=== PATIENT | male | born 1960 | race Caucasian/White ===

== ENCOUNTER 2016-08-08 13:17 | Emergency (ER) | payer OTHER ==
[~2016-08-08] VITALS: Ht 170.2 cm; Wt 76.0 kg
[2016-08-08 13:28] VITALS: Ht 170.2 cm; Wt 76.0 kg
--- NOTE | 2016-08-08 15:41 | ERA ---
ER Documentation Chief Complaint Date/Time DATE: 08/08/16 TIME: 15:40 Chief Complaint Abdominal pain HPI The patient is a 55-year-old male, presenting to the ER because of intermittent left upper quadrant abdominal pain for 5 days, associated with constipation. He had similar symptoms previously, denies fever, chills, neck pain, chest pain , dyspnea, nausea, vomiting, dysuria. He smokes socially, denies drinking or using illicit drug Past medical/surgical history: None ROS All systems reviewed and are negative except as per history of present illness. Medications Home Meds Active Scripts Omeprazole* (Omeprazole*) 20 Mg Capsule.dr, 20 MG PO BID, #20 Prov:COLT MORA MD 08/08/16 Ibuprofen* (Motrin*) 600 Mg Tab, 600 MG PO Q6H Y for PAIN AND OR ELEVATED TEMP, #30 TAB Prov:COLT MORA MD 08/08/16 Allergies Allergies: Coded Allergies: No Known Allergy (Unverified , 08/08/16) PMhx/Soc Medical and Surgical Hx: pt denies Medical Hx, pt denies Surgical Hx Hx Alcohol Use: No Hx Substance Use: No Hx Tobacco Use: Yes Smoking Status: Current some day smoker Physical Exam Vitals Vital Signs Date Time Temp Pulse Resp B/P Pulse Ox O2 Delivery O2 Flow Rate FiO2 08/08/16 18:26 57 18 132/87 98 Room Air 08/08/16 13:28 98.1 75 18 133/90 100 Physical Exam Const: No acute distress. Head: Atraumatic. Eyes: Normal Conjunctiva. ENT: Normal External Ears, Nose and Mouth. Neck: Full range of motion. No meningismus. Resp: Clear to auscultation bilaterally. Cardio: Regular rate and rhythm, no murmurs. Abd: Soft, non distended, normal bowel sounds, minimal left upper quadrant tenderness, no right lower quadrant, right upper quadrant, epigastric, rigidity, rebound or CVA tenderness Skin: No petechiae or rashes. Back: No midline or flank tenderness. Ext: No cyanosis, or edema. Neur: Awake and alert. No focal deficit Psych: Normal Mood and Affect. Result Diagram: 08/08/16 1556 08/08/16 1554 Results 24 hrs Laboratory Tests Test 08/08/16 15:55 08/08/16 16:01 White Blood Count 10.710^3/ul Red Blood Count 5.4110^6/ul Hemoglobin 17.6g/dl Hematocrit 51.1% Mean Corpuscular Volume 94.5fl Mean Corpuscular Hemoglobin 32.5pg Mean Corpuscular Hemoglobin Concent 34.4g/dl Red Cell Distribution Width 12.7% Platelet Count 13518^3/UL Mean Platelet Volume 11.6fl Neutrophils % 51.6% Lymphocytes % 39.6% Monocytes % 6.2% Eosinophils % 1.7% Basophils % 0.6% Nucleated Red Blood Cells % 0.0/100WBC Neutrophils # 5.510^3/ul Lymphocytes # 4.310^3/ul Monocytes # 0.710^3/ul Eosinophils # 0.210^3/ul Basophils # 0.110^3/ul Nucleated Red Blood Cells # 0.010^3/ul Sodium Level 141mmol/L Potassium Level 4.1mmol/L Chloride Level 103mmol/L Carbon Dioxide Level 28mmol/L Anion Gap 14 Blood Urea Nitrogen 10mg/dl Creatinine 0.79mg/dl Glucose Level 94mg/dl Calcium Level 9.1mg/dl Total Bilirubin 0.3mg/dl Direct Bilirubin 0.00mg/dl Indirect Bilirubin 0.3mg/dl Aspartate Amino Transf (AST/SGOT) 54IU/L Alanine Aminotransferase (ALT/SGPT) 74IU/L Alkaline Phosphatase 75IU/L Total Protein 8.0g/dl Albumin 3.9g/dl Globulin 4.10g/dl Albumin/Globulin Ratio 0.95 Lipase 107U/L Bedside Urine pH (LAB) 6.0 Bedside Urine Protein (LAB) Negative Bedside Urine Glucose (UA) Negative Bedside Urine Ketones (LAB) Negative Bedside Urine Blood Negative Bedside Urine Nitrite (LAB) Negative Bedside Urine Leukocyte Esterase (L Negative Current Medications Medications (Trade) Dose Ordered Sig/Chio Route PRN Reason Start Time Stop Time Status Last Admin Dose Admin Sodium Chloride (NS) 1,000 ml @ 1,000 mls/hr Q1H STAT IV 08/08/16 15:45 08/08/16 16:44 DC 08/08/16 16:01 Morphine Sulfate (morphine) 4 mg ONCE STAT IV 08/08/16 15:45 08/08/16 15:46 DC 08/08/16 16:01 Ondansetron HCl (Zofran Inj) 4 mg ONCE STAT IV 08/08/16 15:45 08/08/16 15:46 DC 08/08/16 16:01 Procedures/MDM [place] [address] Radiology Main Line: [phone] DIAGNOSTIC IMAGING REPORT Patient: AYAN MCDONNELL : 1960 Age: 55 Sex: M MR #: [id number] DOS: 08/08/16 1545 Ordering MD: COLT MORA MD Location: E/R Room/Bed: PROCEDURE: CT Abdomen and Pelvis without contrast. CLINICAL INDICATION: Abdominal pain. TECHNIQUE: Multiple contiguous axial CT images of the abdomen and pelvis were obtained without the administration of intravenous contrast. Coronal and sagittal reconstructions were also performed. CTDIvol (mGy): 9.26; Total Exam DLP (mGy-cm): 537.06. One or more of the following dose reduction techniques were utilized: - Automated exposure control. - Adjustment of the mA and/or kV according to patient size. - Use of iterative reconstruction technique. COMPARISON: None. FINDINGS: Limited imaging of the lower thorax is unremarkable. The liver and spleen are homogeneous in density. The gallbladder, pancreas and adrenal glands are unremarkable. The kidneys are symmetric in size. There is a faint punctate stone within the upper pole of the right kidney. There is a punctate stone within the upper pole of the left kidney with a faint punctate stone within the lower pole. There are no ureteral stones. There is no hydronephrosis or abnormal perinephric inflammation. The abdominal aorta is normal in caliber. Atherosclerotic calcification is present. There is no periaortic / retroperitoneal lymphadenopathy. The stomach and small and large intestines are unremarkable. The appendix is normal. There are no focal inflammatory changes of the mesentery. There is no mesenteric lymphadenopathy. There is no ascites. The bladder, uterus and adnexa are unremarkable. There is no free pelvic fluid. There is no pelvic sidewall or inguinal lymphadenopathy. There is a small fat containing right inguinal hernia. Mild degenerative changes of the spine are observed. Body wall soft tissues are unremarkable. IMPRESSION: No evidence of abdominopelvic mass, lymphadenopathy or acute inflammatory pathology. Bilateral nonobstructing nephrolithiasis. Small fat containing right inguinal hernia. RPTAT: HLST .Emy Adler MD, MD Date Time Electronically viewed and signed by .Emy Adler MD, MD on 08/08/2016 17:53 .T/ CC: COLT MORA MD MEDICAL MAKING DECISION: The patient is a 55-year-old male, presenting with acute abdominal pain of unclear etiology. He was treated with morphine 4 mg IV for pain, Zofran 4 mg IV for nausea and 1 L normal saline for clinical dehydration with good response The differential diagnoses considered include but are not limited to cholelithiasis, cholecystitis, cystitis, pancreatitis, hepatitis, gastritis, peptic ulcer disease, gastric ulcer, appendicitis, diverticulitis, cholangitis, choledocholithiasis, partial small bowel obstruction. Departure Diagnosis: Primary Impression: Abdominal pain Additional Impressions: Nephrolithiasis Right inguinal hernia Transaminitis Condition: Good Comments He was discharged with Motrin and Prilosec I discussed the findings with the patient. I advised the patient to follow-up with the primary physician in about 1-2 days, sooner if needed and return if any concern. The patient's blood pressure was elevated (>120/80) but appears stable without evidence of hypertension emergency or urgency. The patient was counseled about the risks of hypertension and urged to pursue outpatient monitoring and therapy within a week with their primary care physician. COLT MORA MD August 08, 2016 15:41
[2016-08-08] MEDS ORDERED: ONDANSETRON 4 MG INJ IV STA (15:45)
[2016-08-08] MEDS ORDERED: SOD CHLORIDE 0.9% 1,000 ML IV STA (15:45)
[2016-08-08] MEDS ORDERED: morphine 4 MG/ML VIAL IV STA (15:45)
[2016-08-08 16:00] LABS: URINE BLOOD (Dip) POC Negative (NEGATIVE)
[2016-08-08 16:03] LABS: ADD SCAN DIFF NO
[2016-08-08 16:05] LABS: BASOPHIL # 0.1 10^3/ul (0.0-0.1); BASOPHILS % 0.6 % (0.0-2.0); EOSINOPHILS # 0.2 10^3/ul (0.0-0.5); EOSINOPHILS % 1.7 % (0.0-7.0); HEMATOCRIT 51.1 % (42.0-52.0); HEMOGLOBIN 17.6 g/dl (14.0-18.0); LYMPHOCYTES # 4.3 10^3/ul (0.8-2.9); LYMPHOCYTES % 39.6 % (15.0-51.0); MEAN CORPUSCULAR HEMOGLOBIN 32.5 pg (29.0-33.0); MEAN CORPUSCULAR HGB CONC 34.4 g/dl (32.0-37.0); MEAN CORPUSCULAR VOLUME 94.5 fl (82.0-101.0); MEAN PLATELET VOLUME 11.6 fl (7.4-10.4); MONOCYTE # 0.7 10^3/ul (0.3-0.9); MONOCYTES % 6.2 % (0.0-11.0); NEUTROPHIL # 5.5 10^3/ul (1.6-7.5); NEUTROPHILS % 51.6 % (39.0-77.0); PLATELET COUNT 211 10^3/UL (140-415); RED BLOOD COUNT 5.41 10^6/ul (4.70-6.10); RED CELL DISTRIBUTION WIDTH 12.7 % (11.5-14.5); WHITE BLOOD COUNT 10.7 10^3/ul (4.8-10.8)
[2016-08-08 16:26] LABS: ALBUMIN 3.9 g/dl (3.3-4.9)
[2016-08-08 16:29] LABS: BILIRUBIN,INDIRECT 0.3 mg/dl (0-1.1); BILIRUBIN,TOTAL 0.3 mg/dl (0.2-1.3); CREATININE 0.79 mg/dl (0.61-1.24)
[2016-08-08 16:30] LABS: ALBUMIN/GLOBULIN RATIO 0.95; CALCIUM 9.1 mg/dl (8.4-10.2); POTASSIUM 4.1 mmol/L (3.5-5.1)
--- NOTE | 2016-08-08 17:53 | RADRPT ---
PROCEDURE: CT Abdomen and Pelvis without contrast. CLINICAL INDICATION: Abdominal pain. TECHNIQUE: Multiple contiguous axial CT images of the abdomen and pelvis were obtained without the administration of intravenous contrast. Coronal and sagittal reconstructions were also performed. CTDIvol (mGy): 9.26; Total Exam DLP (mGy-cm): 537.06. One or more of the following dose reduction techniques were utilized: - Automated exposure control. - Adjustment of the mA and/or kV according to patient size. - Use of iterative reconstruction technique. COMPARISON: None. FINDINGS: Limited imaging of the lower thorax is unremarkable. The liver and spleen are homogeneous in density. The gallbladder, pancreas and adrenal glands are u nremarkable. The kidneys are symmetric in size. There is a faint punctate stone within the upper pole of the righ t kidney. There is a punctate stone within the upper pole of the left kidney with a faint punctate stone within the lower pole. There are no ureteral stones. There is no hydronephrosis or abnormal perinephric inflammation. The abdominal aorta is normal in caliber. Atherosclerotic calcification is present. There is no per iaortic / retroperitoneal lymphadenopathy. The stomach and small and large intestines are unremarkable. The appendix is normal. There are no focal inflammatory changes of the mesentery. There is no mesenteric lymphadenopathy. There is no a scites. The bladder, uterus and adnexa are unremarkable. There is no free pelvic fluid. There is no pelvic sidewall or inguinal lymphadenopathy. There is a small fat containing right inguinal hernia. Mild degenerative changes of the spine are observed. Body wall soft tissues are unremarkable. IMPRESSION: No evidence of abdominopelvic mass, lymphadenopathy or acute inflammatory pathology. Bilateral nonobstructing nephrolithiasis. Small fat containing right inguinal hernia. RPTAT: HLST .Emy Adler MD, Date Time Electronically viewed and signed by .Emy Adler MD, on 08/08/2016 17:53 .T/
[2016-08-08] MEDS ORDERED: OMEP20CA16 PO (18:07)
[2016-08-08] MEDS ORDERED: IBUP-1542 PO (18:07)
[2016-08-08 18:26] VITALS: BP 132/87; PULSE 57; RESP 18
== END 2016-08-08 18:27 | disposition home or self-care (01) ==
LOC: E/R 13:17
DX: R10.12 Left upper quadrant pain (principal); N20.0 Calculus of kidney; K40.90 Unilateral inguinal hernia, without obstruction or gangrene, not specified as recurrent; R74.0 Nonspecific elevation of levels of transaminase and lactic acid dehydrogenase [LDH]; F17.210 Nicotine dependence, cigarettes, uncomplicated
CPT/HCPCS: 36415; 74176; 80053; 81003; 83690; 85025; 96374; 96375; J2270; J2405; J7030; Z7502

== ENCOUNTER → 2017-03-10 | Emergency (ER) | payer MEDICAID, OTHER ==
[~2017-03-10] VITALS: Ht 165.1 cm; Wt 73.8 kg
[~2017-03-10] MED LIST: HYDR-902 PO; IBUP-1542 PO; OMEP20CA16 PO; ONDA4TAB14 PO; ONDANSETRON 4 MG INJ IV STA; SOD CHLORIDE 0.9% 1,000 ML IV STA; morphine 4 MG/ML VIAL IV STA
[2017-03-10 11:44] VITALS: Ht 165.1 cm; Wt 73.8 kg
[2017-03-10 14:44] LABS: BASOPHIL # 0.1 10^3/ul (0.0-0.1); BASOPHILS % 0.6 % (0.0-2.0); EOSINOPHILS # 0.2 10^3/ul (0.0-0.5); EOSINOPHILS % 1.4 % (0.0-7.0); HEMATOCRIT 47.2 % (42.0-52.0); HEMOGLOBIN 16.7 g/dl (14.0-18.0); LYMPHOCYTES # 4.3 10^3/ul (0.8-2.9); LYMPHOCYTES % 38.4 % (15.0-51.0); MEAN CORPUSCULAR HEMOGLOBIN 32.6 pg (29.0-33.0); MEAN CORPUSCULAR HGB CONC 35.4 g/dl (32.0-37.0); MEAN PLATELET VOLUME 11.6 fl (7.4-10.4); MONOCYTE # 0.8 10^3/ul (0.3-0.9); MONOCYTES % 7.1 % (0.0-11.0); NEUTROPHIL # 5.9 10^3/ul (1.6-7.5); NEUTROPHILS % 52.1 % (39.0-77.0); PLATELET COUNT 251 10^3/UL (140-415); RED BLOOD COUNT 5.13 10^6/ul (4.70-6.10); RED CELL DISTRIBUTION WIDTH 12.2 % (11.5-14.5); WHITE BLOOD COUNT 11.3 10^3/ul (4.8-10.8)
[2017-03-10 15:00] LABS: ALANINE AMINOTRANSFERASE 52 IU/L (13-69); ALBUMIN 3.9 g/dl (3.3-4.9); ALBUMIN/GLOBULIN RATIO 0.97; ALKALINE PHOSPHATASE 66 IU/L (42-121); ANION GAP 15 (8-16); ASPARTATE AMINO TRANSFERASE 45 IU/L (15-46); BILIRUBIN,INDIRECT 0.4 mg/dl (0-1.1); BILIRUBIN,TOTAL 0.4 mg/dl (0.2-1.3); BLOOD UREA NITROGEN 10 mg/dl (7-20); CALCIUM 9.4 mg/dl (8.4-10.2); CARBON DIOXIDE 28 mmol/L (21-31); CHLORIDE 101 mmol/L (97-110); CREATININE 0.85 mg/dl (0.61-1.24); GLUCOSE 89 mg/dl (70-220); POTASSIUM 4.5 mmol/L (3.5-5.1); SODIUM 139 mmol/L (135-144); TOTAL PROTEIN 7.9 g/dl (6.1-8.1)
[2017-03-10 15:10] LABS: ADD UMIC NO; UR ASCORBIC ACID 40 mg/dL (NEGATIVE); UR BILIRUBIN (Dip) NEGATIVE (NEGATIVE); UR BLOOD (Dip) NEGATIVE (NEGATIVE); UR CLARITY CLEAR (CLEAR); UR COLOR YELLOW (YELLOW); UR GLUCOSE (Dip) NEGATIVE (NEGATIVE); UR KETONES (Dip) TRACE mg/dL (NEGATIVE); UR LEUKOCYTE ESTERASE (Dip) NEGATIVE Leu/ul (NEGATIVE); UR NITRITE (Dip) NEGATIVE (NEGATIVE); UR SPECIFIC GRAVITY (Dip) 1.014 (1.003-1.030); UR TOTAL PROTEIN (Dip) NEGATIVE (NEGATIVE); UR UROBILINOGEN (Dip) 2+ mg/dL (NEGATIVE)
[2017-03-10 15:16] LABS: TROPONIN-I < 0.012 ng/ml (0.00-0.12)
--- NOTE | 2017-03-10 17:10 | RADRPT ---
PROCEDURE: US Abdomen. CLINICAL INDICATION: Abdominal pain. TECHNIQUE: Multiple real-time images were acquired of the patient's right upper quadrant utilizing a high resolution transducer. The images were reviewed on a high-resolution PACS workstation. COMPARISON: None FINDINGS: The liver demonstrates normal echogenicity and size and no focal lesions are seen. The liver measure s 12.9 cm in size. No gallstones are identified within the gallbladder. There is no pericholecystic fluid. The gallbladder wall measures 2 mm in size. No intrahepatic biliary dilatation is seen. Th e common bile duct measures 4.1 mm in maximal dimension. The visualized portions of the pancreas ar e unremarkable. No free fluid is identified. The right kidney is of normal size, and demonstrate normal echogenicity and morphology. The right k idney measures 10 x 5.5 x 6.6 cm. There are is no dilatation of the right collecting system. There are no perinephric fluid collections. There are no areas of increased echogenicity to suggest neph rolithiasis. IMPRESSION: Unremarkable right upper quadrant ultrasound. RPTAT: HPNM Physician Arthur Date Time Electronically viewed and signed by Physician Arthur on 03/10/2017 17:09 /
[2017-03-10 18:25] VITALS: BP 130/80; PULSE 80; RESP 17; TEMP 97.8
--- NOTE | 2017-03-10 18:52 | ERD ---
ER Documentation Chief Complaint Chief Complaint Complains of abdominal pain x 1 week HPI Patient is a 56-year-old male with no medical problems who presents with abdominal pain. He has right upper quadrant abdominal pain which she describes as strong. He said that he could not sleep last night. Started 2 weeks ago. It has been worsening. He has vomiting. He has had fever as well but did not take his temperature. He tried ibuprofen. Upon review of old medical records the patient one previous visit in July [address] scan done of the abdomen and pelvis at that time. ROS All systems reviewed and are negative except as per history of present illness. Medications Home Meds Active Scripts Ondansetron (Ondansetron Odt) 4 Mg Tab.rapdis, 4 MG PO Q6H Y for NAUSEA AND/OR VOMITING, #10 TAB Prov:MAE ZAVALA MD 03/10/17 Hydrocodone/Acetaminophen ([place] 10-325 Tablet) 1 Each Tablet, 1 TAB PO Q6H Y for PAIN, #7 TAB Prov:MAE ZAVALA MD 03/10/17 Discontinued Scripts Omeprazole* (Omeprazole*) 20 Mg Capsule.dr, 20 MG PO BID, #20 Prov:COLT MORA MD 08/08/16 Ibuprofen* (Motrin*) 600 Mg Tab, 600 MG PO Q6H Y for PAIN AND OR ELEVATED TEMP, #30 TAB Prov:COLT MORA MD 08/08/16 Allergies Allergies: Coded Allergies: No Known Allergy (Unverified , 03/10/17) PMhx/Soc Hx Alcohol Use: No Hx Substance Use: No Hx Tobacco Use: Yes Smoking Status: Unknown if ever smoked FmHx Family History: diabetes Physical Exam Vitals Vital Signs Date Time Temp Pulse Resp B/P Pulse Ox O2 Delivery O2 Flow Rate FiO2 03/10/17 18:25 97.8 80 17 130/80 100 Room Air 03/10/17 15:51 97.8 60 17 136/90 Room Air 03/10/17 11:44 97.4 81 20 173/85 98 Physical Exam Const: [] Head: Atraumatic Eyes: Normal Conjunctiva ENT: Normal External Ears, Nose and Mouth. Neck: Full range of motion..~ No meningismus. Resp: Clear to auscultation bilaterally Cardio: Regular rate and rhythm, no murmurs Abd: Soft, non tender, non distended. Normal bowel sounds Skin: No petechiae or rashes Back: No midline or flank tenderness Ext: No cyanosis, or edema Neur: Awake and alert Psych: Normal Mood and Affect Result Diagram: 03/10/17 1430 03/10/17 1430 Results 24 hrs Laboratory Tests Test 03/10/17 14:30 03/10/17 14:40 White Blood Count 11.310^3/ul Red Blood Count 5.1310^6/ul Hemoglobin 16.7g/dl Hematocrit 47.2% Mean Corpuscular Volume 92.0fl Mean Corpuscular Hemoglobin 32.6pg Mean Corpuscular Hemoglobin Concent 35.4g/dl Red Cell Distribution Width 12.2% Platelet Count 01620^3/UL Mean Platelet Volume 11.6fl Neutrophils % 52.1% Lymphocytes % 38.4% Monocytes % 7.1% Eosinophils % 1.4% Basophils % 0.6% Nucleated Red Blood Cells % 0.0/100WBC Neutrophils # 5.910^3/ul Lymphocytes # 4.310^3/ul Monocytes # 0.810^3/ul Eosinophils # 0.210^3/ul Basophils # 0.110^3/ul Nucleated Red Blood Cells # 0.010^3/ul Sodium Level 139mmol/L Potassium Level 4.5mmol/L Chloride Level 101mmol/L Carbon Dioxide Level 28mmol/L Anion Gap 15 Blood Urea Nitrogen 10mg/dl Creatinine 0.85mg/dl Glucose Level 89mg/dl Calcium Level 9.4mg/dl Total Bilirubin 0.4mg/dl Direct Bilirubin 0.00mg/dl Indirect Bilirubin 0.4mg/dl Aspartate Amino Transf (AST/SGOT) 45IU/L Alanine Aminotransferase (ALT/SGPT) 52IU/L Alkaline Phosphatase 66IU/L Troponin I < 0.012ng/ml Total Protein 7.9g/dl Albumin 3.9g/dl Globulin 4.00g/dl Albumin/Globulin Ratio 0.97 Lipase 130U/L Urine Color YELLOW Urine Clarity CLEAR Urine pH 6.0 Urine Specific [place] 1.014 Urine Ketones TRACEmg/dL Urine Nitrite NEGATIVEmg/dL Urine Bilirubin NEGATIVEmg/dL Urine Urobilinogen 2+mg/dL Urine Leukocyte Esterase NEGATIVELeu/ul Urine Hemoglobin NEGATIVEmg/dL Urine Glucose NEGATIVEmg/dL Urine Total Protein NEGATIVEmg/dl Current Medications Medications (Trade) Dose Ordered Sig/Chio Route PRN Reason Start Time Stop Time Status Last Admin Dose Admin Sodium Chloride (NS) 1,000 ml @ 1,000 mls/hr Q1H STAT IV 03/10/17 14:16 03/10/17 15:15 DC 03/10/17 14:16 Morphine Sulfate (morphine) 4 mg ONCE STAT IV 03/10/17 14:16 03/10/17 14:18 DC 03/10/17 15:49 Ondansetron HCl (Zofran Inj) 4 mg ONCE STAT IV 03/10/17 14:16 03/10/17 14:18 DC 03/10/17 15:48 Procedures/MDM Smoking Cessation Therapy: Pt. was lectured for greater than 3 minutes on the health risks of continued smoking and the benefits of cessation. Ultrasound the gallbladder shows no cholecystitis per radiology. Patient is a 56-year-old male presents with abdominal pain. Laboratory studies are basically normal. Ultrasound the gallbladder shows no sign of cholecystitis. The patient had a CT scan done in July and I do not want to repeat this at this time given the risk of radiation. I doubt appendicitis, cholecystitis, pancreatitis, or bowel obstruction. I believe outpatient management is appropriate. The patient can return for any worsening symptoms. The patient should follow-up with his primary doctor tomorrow for reevaluation. Departure Diagnosis: Primary Impression: Abdominal pain Abdominal location: right upper quadrant Qualified Code: R10.11 - Right upper quadrant abdominal pain Condition: Fair Patient Instructions: Abdominal Pain Referrals: Your doctor Additional Instructions: Visite a herring mare isaac para un EXAMEN.Regrese a estas instalaciones si no se mejora eva esperbamos o eva le dimeredithmos. MAE ZAVALA MD Mar 10, 2017 18:52
== END | disposition home or self-care (01) ==
LOC: E/R 11:41
DX: R10.11 Right upper quadrant pain (principal); Z87.891 Personal history of nicotine dependence
CPT/HCPCS: 76705; 80053; 81003; 83690; 84484; 85025; 96374; 96375; J2270; J2405; J7030; Z7502; 93005

== ENCOUNTER 2018-07-08 13:19 | Emergency (ER) | payer OTHER ==
[~2018-07-08] VITALS: Ht 170.2 cm; Wt 70.0 kg
[~2018-07-08 13:19] MED LIST changes: +FAMO-96 PO; +HYDR-3980 PO; -HYDR-902 PO; -IBUP-1542 PO; -ONDANSETRON 4 MG INJ IV STA; -SOD CHLORIDE 0.9% 1,000 ML IV STA; +ZOF8 PO; -morphine 4 MG/ML VIAL IV STA
[2018-07-08 13:38] VITALS: BP 138/82; PULSE 63; RESP 19; Ht 170.2 cm; Wt 70.0 kg
[2018-07-08] MEDS ORDERED: FAMOTIDINE 20 MG TAB PO STA (14:58)
[2018-07-08] MEDS ORDERED: LIDOCAINE/MYLANTA 40 ML BTL PO STA (14:58)
[2018-07-08] MEDS ORDERED: BELLADONNA/PHENOBARBITAL TAB PO STA (14:58)
[2018-07-08] MEDS ORDERED: SUCR1TAB56 PO (15:00)
[2018-07-08] MEDS ORDERED: ONDA4TAB14 PO (15:00)
[2018-07-08] MEDS ORDERED: OMEP20CA16 PO (15:00)
--- NOTE | 2018-07-08 15:18 | ERD ---
ER Documentation Chief Complaint Chief Complaint ABDOMINAL PAIN, VOMITITNG X 3 DAYS HPI 57-year-old woman who presents to the emergency with 3 months of epigastric postprandial abdominal discomfort. The patient has tried a PPI without much success. He has not followed up with primary care physician is not seen a GI doctor. He presents with persistent symptoms, decreased p.o. intake because of the symptoms. He denies any chest pressure or exertional symptoms. No hematemesis or melena. ROS All systems reviewed and are negative except as per history of present illness. Medications Home Meds Active Scripts Sucralfate* (Carafate*) 1 Gm Tab, 1 GM PO AC MEALS AND BEDTIME, #14 TAB Prov:RD MATUTE MD 07/08/18 Omeprazole* (Omeprazole*) 20 Mg Capsule.dr, 20 MG PO DAILY for 30 Days Prov:RD MATUTE MD 07/08/18 Ondansetron (Ondansetron Odt) 4 Mg Tab.rapdis, 4 MG PO Q6H PRN for NAUSEA AND/OR VOMITING, #20 TAB Prov:RD MATUTE MD 07/08/18 Ondansetron Hcl* (Zofran*) 8 Mg Tab, 8 MG PO Q6H PRN for NAUSEA AND OR VOMITING, #20 TAB Prov:KARON BAE MD 05/06/18 Omeprazole* (Omeprazole*) 20 Mg Capsule.dr, 20 MG PO DAILY, #10 Prov:KARON BAE MD 05/06/18 Famotidine* (Pepcid*) 20 Mg Tablet, 20 MG PO BID for 14 Days, TAB Prov:KARON BAE MD 05/06/18 Ondansetron (Ondansetron Odt) 4 Mg Tab.rapdis, 4 MG PO Q6H PRN for NAUSEA AND/OR VOMITING, #10 TAB Prov:MAE ZAVALA MD 03/10/17 Hydrocodone/Acetaminophen ([place] 10-325 Tablet) 1 Each Tablet, 1 TAB PO Q6H PRN for PAIN, #7 TAB Prov:MAE ZAVALA MD 03/10/17 Allergies Allergies: Coded Allergies: No Known Allergy (Unverified , 03/10/17) PMhx/Soc Hx Alcohol Use: No Hx Substance Use: No Hx Tobacco Use: Yes Smoking Status: Never smoker FmHx Family History: No diabetes Physical Exam Vitals Vital Signs Date Temp Pulse Resp B/P (MAP) Pulse Ox O2 O2 Flow FiO2 Time Delivery Rate 07/08/18 97.3 63 19 138/82 95 13:38 (100) Physical Exam General: Well developed, well nourished, no acute distress Head: Normocephalic, atraumatic. Eyes: Pupils equally reactive, EOM intact ENT: Moist mucous membranes Neck: Supple, no lymphadenopathy Respiratory: Lungs clear bilaterally, no distress Cardiovascular: RRR, no murmurs, rubs, or gallops Abdominal: Soft, non-tender, non-distended, no peritoneal signs : Deferred MSK: No edema, no unilateral swelling, 5/5 strength Neurologic: Alert and oriented, moving all extremities, normal speech, no focal weakness, no cerebellar signs Skin: No rash Psych: Normal mood Results 24 hrs Current Medications Medications Dose Sig/Chio Start Time Status Last (Trade) Ordered Route PRN Stop Time Admin Dose Reason Admin Famotidine 20 mg ONCE STAT 07/08/18 DC 07/08/18 (Pepcid) PO 14:58 15:11 07/08/18 14:59 40 ml ONCE STAT 07/08/18 DC 07/08/18 Miscellaneous PO 14:58 15:11 Medication 07/08/18 14:59 (Gi Cocktail (2)) [place]/ 2 tab ONCE STAT 07/08/18 DC 07/08/18 Phenobarbital PO 14:58 15:11 () 07/08/18 14:59 Procedures/MDM MEDICAL DECISION MAKING: Patient symptoms are very consistent with GI process such as peptic ulcer disease, dyspepsia or gastroesophageal reflux. Patient has a benign abdominal examination. No exertional symptoms to suggest cardiac etiology. I offered laboratory testing with the patient feels very strongly about not having an IV or blood work. The patient was advised that he needs to follow-up with a GI doctor at this point. The patient is a good candidate for endoscopy. He exhibits no signs or symptoms concerning for emergent medical condition or hepatobiliary obstruction. ER COURSE: * Patient was given a GI cocktail and will be discharged with outpatient GI follow-up CONSULTATION: None DISPOSITION PLAN: The patient does not have an identifiable emergent medical condition that warrants inpatient hospitalization at this time. The patient is deemed safe for discharge with outpatient follow-up. We discussed follow up with the patient's primary care doctor within 24 to 48 hours as needed. We also discussed return to the emergency room for worsening symptoms or worsening condition. Outpatient referral: Gastroenterology Discharge Medications: Prilosec, sucralfate, Zofran Departure Diagnosis: Primary Impression: Epigastric abdominal pain Condition: Stable Patient Instructions: Gerd (Adult), Epigastric Pain (Uncertain Cause) Referrals: TISHA JAMES MD,GABY VACA MD, MD [facility] () Usted se molina hecho un examen mdico de control que le indica que no est en lin condicin que requiera tratamiento urgente en el Departamento de Emergencia. Un estudio ms profundo y el tratamiento de herring condicin pueden esperar sin ningn riesgo hasta que usted sea atendida/o en el consultorio de herring mdico o lin clnica. Es responsabilidad suya arreglar lin leonardo para el seguimiento del viola. MANEJO DE CONDICIONES NO URGENTES EN EL FUTURO 1) Si usted tiene un mdico de atencin primaria: Usted debera llamar a herring mdico de atencin primaria antes de venir al departamento de emergencia. Despus de las horas de consultorio, herring doctor o herring asociado/a est disponible por telfono. El mdico o enfermero de beni en el servicio telefnico puede asesorarle por ryan medio para atender el problema, o viola contrario se puede programar lin leonardo. 2) Si usted no tiene un mdico de atencin primaria: Llame al mdico o clnica de referencia que aparece abajo lorena las horas de consultorio para hacer lin leonardo para que le vean. CLINICAS: [facility] [phone] [address] [facility] [phone] [address] [facility] [phone] [facility] [facility] [phone] [place] [address] [phone] [facility]. [phone] [address] [facility]. [facility] () Usted se molina hecho un examen mdico de control que le indica que no est en lin condicin que requiera tratamiento urgente en el Departamento de Emergencia. Un estudio ms profundo y el tratamiento de herring condicin pueden esperar sin ningn riesgo hasta que usted sea atendida/o en el consultorio de herring mdico o lin clnica. Es responsabilidad suya arreglar lin leonardo para el seguimiento del viola. MANEJO DE CONDICIONES NO URGENTES EN EL FUTURO 1) Si usted tiene un mdico de atencin primaria: Usted debera llamar a herring mdico de atencin primaria antes de venir al departamento de emergencia. Despus de las horas de consultorio, herring doctor o herring asociado/a est disponible por telfono. El mdico o enfermero de beni en el servicio telefnico puede asesorarle por ryan medio para atender el problema, o viola contrario se puede programar lin leonardo. 2) Si usted no tiene un mdico de atencin primaria: Llame al mdico o condado institucions de referencia que aparece abajo lorena las horas de consultorio para hacer lin leonardo para que le vean. SI USTED NO PUEDE PAGAR PARA ARLETH UN MEDICO puede ir a: [facility] [address] [place] [address] [facility] [address] [place] [address] [facility] [address] [place] [address] [facility] [address] [place] [address] Additional Instructions: Llame al doctor nombrado abajo (Referral Sources) MAANA y ana lin LEONARDO PARA DENTRO DE LIN SEMANA. Dgale a la secretaria que nosotros le instruimos hacer esta leonardo.Avise o llame si herring condicin se empeora antes de la leonardo. RD MATUTE MD Jul 08, 2018 15:18
== END 2018-07-08 15:17 | disposition home or self-care (01) ==
LOC: E/R 13:19
DX: R10.13 Epigastric pain (principal); R11.10 Vomiting, unspecified
CPT/HCPCS: Z7502; Z7610; 99283